=== PATIENT | male | born 1980 ===

== ENCOUNTER 2018-06-21 13:06 | Emergency (ER) | payer BC, OTHER ==
[2018-06-21 13:14] VITALS: BP 151/80
[2018-06-21] MEDS ORDERED: Acetaminophen TAB* 325 MG PO ONE (13:29)
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
== END 2018-06-21 14:30 | disposition home or self-care (01) ==
LOC: UCEAST 13:06
DX: S09.90XA Unspecified injury of head, initial encounter (principal); S06.0X0A Concussion without loss of consciousness, initial encounter; S16.1XXA Strain of muscle, fascia and tendon at neck level, initial encounter; S29.012A Strain of muscle and tendon of back wall of thorax, initial encounter; R42 Dizziness and giddiness; Z88.0 Allergy status to penicillin; V89.2XXA Person injured in unspecified motor-vehicle accident, traffic, initial encounter; Y92.9 Unspecified place or not applicable
CPT/HCPCS: 70450; 71046; 72125; 99201; A9270-GY; G0463